=== PATIENT | female | born 1975 | race Caucasian/White ===

== ENCOUNTER 2019-02-23 22:39 | Emergency (ER) | payer OTHER ==
[~2019-02-23] VITALS: Ht 165.1 cm; Wt 81.7 kg
[2019-02-23 22:49] VITALS: BP 130/88
[2019-02-23] MEDS ORDERED: ADDERALL 30 MG30 MG PO (22:54)
== END 2019-02-23 23:07 | disposition home or self-care (01) ==
LOC: M.ERS 22:39
DX: T80.89XA Other complications following infusion, transfusion and therapeutic injection, initial encounter (principal); F17.210 Nicotine dependence, cigarettes, uncomplicated; Z86.2 Personal history of diseases of the blood and blood-forming organs and certain disorders involving the immune mechanism; Z90.49 Acquired absence of other specified parts of digestive tract; Y84.9 Medical procedure, unspecified as the cause of abnormal reaction of the patient, or of later complication, without mention of misadventure at the time of the procedure; Y92.89 Other specified places as the place of occurrence of the external cause